=== PATIENT | female | born 1995 | race Caucasian/White ===

== ENCOUNTER 2017-05-17 14:33 | Emergency (ER) | payer OTHER ==
[2017-05-17] MEDS: IBUPROFEN 800 MG TABLET. PO ×2 (15:32)
[2017-05-17] MEDS: FAMOTIDINE 20 MG TABLET. PO ×2 (15:33)
[2017-05-17 15:35] LABS: URINE HCG POC HCG NEGATIVE (Negative)
== END 2017-05-17 16:14 | disposition home or self-care (01) ==
LOC: ER 16:14
DX: J06.9 Acute upper respiratory infection, unspecified (principal)
CPT/HCPCS: 71046; 81025; 93005; 99284-25

== ENCOUNTER 2018-10-15 14:08 | Emergency (ER) | payer OTHER ==
[~2018-10-15] VITALS: Ht 160 cm; Wt 86.2 kg
[~2018-10-15 14:08] MED LIST: METH4TAB2 PO
[2018-10-15] MEDS ORDERED: IV NORMAL SALINE 1000ML BAG 1,000 ML IV SCH (14:28)
[2018-10-15] MEDS ORDERED: ONDANSETRON PF 4 MG/2 ML VIAL. IV ONE (14:30)
[2018-10-15 14:35] LABS: BILIRUBIN,URINE NEGATIVE (NEG); CLARITY,URINE CLEAR; COLOR,URINE YELLOW; NITRITE,URINE NEGATIVE (NEG); PROTEIN,URINE NEGATIVE (NEG-TRACE)
[2018-10-15 14:42] LABS: BARBITURATES NEG (NEG); BENZODIAZEPINES NEG (NEG); CANNABINOIDS POS (NEG); COCAINE NEG (NEG); METHADONE NEG (NEG); OPIATES NEG (NEG); PHENCYCLIDINE NEG (NEG)
[2018-10-15 14:43] LABS: BACTERIA,URINE FEW /HPF (0-FEW); RBC,URINE 0 /HPF (0-2); SQUAMOUS EPITHELIAL CELL,UR MOD /LPF; WBC,URINE OCC /HPF (0-4)
[2018-10-15 14:45] LABS: AMPHETAMINE/METHAMPHETAMINE NEG (NEG)
[2018-10-15] MEDS ORDERED: FAMOTIDINE 20 MG/2 ML VIAL IVP ONE (14:45)
[2018-10-15] MEDS ORDERED: fentaNYL PF VIAL 100 MCG/2 ML VIAL IV ONE (14:45)
[2018-10-15] MEDS ORDERED: IV NORMAL SALINE 1000ML BAG 1,000 ML IV ONE (14:45)
[2018-10-15 15:09] LABS: BASO % 1 % (0-3); EOS # 0.1 x10^3/uL (0.0-0.7); EOS % 1 % (0-3); HEMOGLOBIN 14.3 g/dL (12.0-15.5); LYMPH % 32 % (24-48); MEAN CORPUSCULAR HEMOGLOBIN 31 pg (25-35); MEAN CORPUSCULAR HGB CONC 35 g/dL (31-37); MEAN CORPUSCULAR VOLUME 89 fL (79-100); MONO # 0.3 x10^3/uL (0.0-1.1); MONO % 6 % (0-9); NEUT # 3.8 x10^3uL (1.8-7.7); NEUT % 62 % (31-73); PLATELET COUNT 228 x10^3/uL (140-400); RED CELL DISTRIBUTION WIDTH 13.7 % (11.5-14.5); WHITE BLOOD COUNT 6.2 x10^3/uL (4.0-11.0)
[2018-10-15 15:24] LABS: CALCIUM 8.9 mg/dL (8.5-10.1); CREATININE 0.7 mg/dL (0.6-1.0); GFR 106.7; POTASSIUM 3.8 mmol/L (3.5-5.1)
[2018-10-15 15:37] LABS: ALBUMIN 4.1 g/dL (3.4-5.0); TOTAL BILIRUBIN 0.3 mg/dL (0.2-1.0); TOTAL PROTEIN 8.1 g/dL (6.4-8.2)
[2018-10-15] MEDS ORDERED: ONDA4TAB12 PO (16:09)
--- NOTE | 2018-10-15 16:11 | PHYS DOC ---
Past Medical History Past Medical History: No Pertinent History Past Surgical History: No Surgical History Alcohol Use: Occasionally Drug Use: None Adult General Chief Complaint Chief Complaint: ABDOMINAL PAIN HPI HPI Patient is a 22 year old female who presents with states drink 7 to keep the emanates last night began having vomiting and diarrhea today. Patient has left upper quadrant stabbing pain that comes and goes. She rates her pain a 9 out of 10. She does smoke marijuana. Last menstrual period is October 11. Review of Systems Review of Systems Constitutional: Denies fever or chills [] Eyes: Denies change in visual acuity, redness, or eye pain [] HENT: Denies nasal congestion or sore throat [] Respiratory: Denies cough or shortness of breath [] Cardiovascular: No additional information not addressed in HPI [] GI: Epigastric abdominal pain, nausea, vomiting, denies bloody stools. +diarrhea [] : Denies dysuria or hematuria [] Musculoskeletal: Denies back pain or joint pain [] Integument: Denies rash or skin lesions [] Neurologic: Denies headache, focal weakness or sensory changes [] Endocrine: Denies polyuria or polydipsia [] All other systems were reviewed and found to be within normal limits, except as documented in this note. Current Medications Current Medications Current Medications Medications (Trade) Dose Ordered Sig/[facility] Start Time Stop Time Status Last Admin Dose Admin Famotidine (Pepcid Vial) 20 mg 1X ONCE 10/15/18 14:45 10/15/18 14:46 DC 10/15/18 15:09 20 MG Fentanyl Citrate (Fentanyl 2ml Vial) 50 mcg 1X ONCE 10/15/18 14:45 10/15/18 14:46 DC 10/15/18 15:08 50 MCG Ondansetron HCl (Zofran) 4 mg 1X ONCE 10/15/18 14:30 10/15/18 14:32 DC 10/15/18 15:07 4 MG Sodium Chloride 1,000 ml @ 1,000 mls/hr 1X ONCE 10/15/18 14:45 10/15/18 15:44 DC 10/15/18 15:00 1,000 MLS/HR Allergies Allergies Allergies Coded Allergies Type Severity Reaction Last Updated Verified No Known Drug Allergies 12/15/14 No Physical Exam Physical Exam Constitutional: Well developed, well nourished, no acute distress, non-toxic appearance. [] HENT: Normocephalic, atraumatic, bilateral external ears normal, oropharynx moist, no oral exudates, nose normal. [] Eyes: PERRLA, EOMI, conjunctiva normal, no discharge. [] Neck: Normal range of motion, no tenderness, supple, no stridor. [] Cardiovascular:Heart rate regular rhythm, no murmur [] Lungs & Thorax: Bilateral breath sounds clear to auscultation [] Abdomen: Bowel sounds normal, soft, epigastric tenderness, no masses, no pulsatile masses. [] Skin: Warm, dry, no erythema, no rash. [] Back: No tenderness, no CVA tenderness. [] Extremities: No tenderness, no cyanosis, no clubbing, ROM intact, no edema. [] Neurologic: Alert and oriented X 3, normal motor function, normal sensory function, no focal deficits noted. [] Psychologic: Affect normal, judgement normal, mood normal. [] Current Patient Data Vital Signs Vital Signs Date Time Temp Pulse Resp B/P (MAP) Pulse Ox O2 Delivery O2 Flow Rate FiO2 10/15/18 15:08 18 98 Room Air 10/15/18 14:21 97.9 68 145/85 (105) 97.9 Lab Values Laboratory Tests Test 10/15/18 14:22 10/15/18 14:28 10/15/18 15:00 Urine Collection Type Unknown Urine Color Yellow Urine Clarity Clear Urine pH 7.0 Urine Specific [place] 1.020 Urine Protein Negative mg/dL (NEG-TRACE) Urine Glucose (UA) Negative mg/dL (NEG) Urine Ketones (Stick) Negative mg/dL (NEG) Urine Blood Negative (NEG) Urine Nitrite Negative (NEG) Urine Bilirubin Negative (NEG) Urine Urobilinogen Dipstick 1.0 mg/dL (0.2 mg/dL) Urine Leukocyte Esterase Negative (NEG) Urine RBC 0 /HPF (0-2) Urine WBC Occ /HPF (0-4) Urine Squamous Epithelial Cells Mod /LPF Urine Bacteria Few /HPF (0-FEW) Urine Mucus Mod /LPF Urine Opiates Screen Neg (NEG) Urine Methadone Screen Neg (NEG) Urine Barbiturates Neg (NEG) Urine Phencyclidine Screen Neg (NEG) Urine Amphetamine/Methamphetamine Neg (NEG) Urine Benzodiazepines Screen Neg (NEG) Urine Cocaine Screen Neg (NEG) Urine Cannabinoids Screen Pos (NEG) Urine Ethyl Alcohol Neg (NEG) POC Urine HCG, Qualitative Hcg negative (Negative) White Blood Count 6.2 x10^3/uL (4.0-11.0) Red Blood Count 4.60 x10^6/uL (3.50-5.40) Hemoglobin 14.3 g/dL (12.0-15.5) Hematocrit 41.0 % (36.0-47.0) Mean Corpuscular Volume 89 fL (79-100) Mean Corpuscular Hemoglobin 31 pg (25-35) Mean Corpuscular Hemoglobin Concent 35 g/dL (31-37) Red Cell Distribution Width 13.7 % (11.5-14.5) Platelet Count 228 x10^3/uL (140-400) Neutrophils (%) (Auto) 62 % (31-73) Lymphocytes (%) (Auto) 32 % (24-48) Monocytes (%) (Auto) 6 % (0-9) Eosinophils (%) (Auto) 1 % (0-3) Basophils (%) (Auto) 1 % (0-3) Neutrophils # (Auto) 3.8 x10^3uL (1.8-7.7) Lymphocytes # (Auto) 2.0 x10^3/uL (1.0-4.8) Monocytes # (Auto) 0.3 x10^3/uL (0.0-1.1) Eosinophils # (Auto) 0.1 x10^3/uL (0.0-0.7) Basophils # (Auto) 0.0 x10^3/uL (0.0-0.2) Sodium Level 140 mmol/L (136-145) Potassium Level 3.8 mmol/L (3.5-5.1) Chloride Level 105 mmol/L (98-107) Carbon Dioxide Level 23 mmol/L (21-32) Anion Gap 12 (6-14) Blood Urea Nitrogen 13 mg/dL (7-20) Creatinine 0.7 mg/dL (0.6-1.0) Estimated GFR (Cockcroft-Gault) 106.7 BUN/Creatinine Ratio 19 (6-20) Glucose Level 104 mg/dL (70-99) H Calcium Level 8.9 mg/dL (8.5-10.1) Total Bilirubin 0.3 mg/dL (0.2-1.0) Aspartate Amino Transferase (AST) 17 U/L (15-37) Alanine Aminotransferase (ALT) 33 U/L (14-59) Alkaline Phosphatase 81 U/L (46-116) Total Protein 8.1 g/dL (6.4-8.2) Albumin 4.1 g/dL (3.4-5.0) Albumin/Globulin Ratio 1.0 (1.0-1.7) Lipase 94 U/L (73-393) Laboratory Tests 10/15/18 15:00 Laboratory Tests 10/15/18 15:00 EKG EKG [] Radiology/Procedures Radiology/Procedures [] Course & Med Decision Making Course & Med Decision Making Patient is a 22 year old female who presents with states drink 7 to keep the emanates last night began having vomiting and diarrhea today. Patient has left upper quadrant stabbing pain that comes and goes. She rates her pain a 9 out of 10. She does smoke marijuana. Last menstrual period is October 11. Alert and oriented. Lungs Clear to auscultation all lobes. Patient has epigastric tenderness. Skin is pink warm and dry. Mucous membranes are moist. Vital signs within normal limits. Patient denies any vaginal bleeding or vaginal discharge. Afebrile. Patient states the pain medication helped her pain and she is feeling better. Urinalysis shows no infection. Blood work unremarkable. Patient received 2 normal saline boluses and nausea medication ED. Patient to follow up with primary care physician. Patient to drink plenty of fluids and avoid alcohol. Dragon Disclaimer Dragon Disclaimer This electronic medical record was generated, in whole or in part, using a voice recognition dictation system. Departure Departure Impression: Primary Impression: Nausea & vomiting Additional Impression: Diarrhea Disposition: 01 HOME, SELF-CARE Condition: STABLE Referrals: NO PCP (PCP) Patient Instructions: Diarrhea, Nausea and Vomiting Additional Instructions: Follow up with primary care provider if needed. Drink plenty of fluids. Scripts Ondansetron (ONDANSETRON ODT) 4 Mg Tab.rapdis 1 TAB PO PRN Q6-8HRS, #16 TAB Prov: DAVID PULLIAM THRESHING OPERATOR 10/15/18 Problem Qualifiers Primary Impression: Nausea & vomiting Vomiting type: unspecified Vomiting Intractability: non-intractable Qualified Codes: R11.2 - Nausea with vomiting, unspecified Additional Impression: Diarrhea Diarrhea type: unspecified type Qualified Codes: R19.7 - Diarrhea, unspecified DAVID PULLIAM THRESHING OPERATOR Oct 15, 2018 16:11
[2018-10-15] MEDS ORDERED: DICYCLOMINE 20 MG/2 ML AMPUL. IM ONE (16:15)
[2018-10-15 16:24] VITALS: BP 105/55
== END 2018-10-15 16:33 | disposition home or self-care (01) ==
LOC: ER 14:08
DX: R11.2 Nausea with vomiting, unspecified (principal); R19.7 Diarrhea, unspecified; R10.13 Epigastric pain; R10.12 Left upper quadrant pain; F12.90 Cannabis use, unspecified, uncomplicated
CPT/HCPCS: 36415; 80053; 80307; 81001; 81025; 83690; 85025; 96361; 96372; 96374; 96375; 99284; J0500; J2405; J3010; J3490; J7030